=== PATIENT | male | born 1980 | race African-American/Black ===

== ENCOUNTER 2018-01-20 15:07 | Emergency (ER) | payer OTHER ==
[~2018-01-20] VITALS: Ht 177.8 cm; Wt 99.8 kg
[2018-01-20] MEDS ORDERED: NKM (15:20)
[2018-01-20] MEDS ORDERED: Tetanus/Diptheria/Pertussis Vaccine 0.5ml Syr IM ONE (15:30)
[2018-01-20] MEDS ORDERED: Tylenol #3 tab (300mg/30mg) ORAL ONE (15:30)
[2018-01-20] MEDS ORDERED: BACTRIM DS TAB1 EAC1 ORAL (15:36)
[2018-01-20] MEDS ORDERED: TYLENOL EXTRA500 MG ORAL (15:36)
[2018-01-20] MEDS ORDERED: HYDROCORTISONE30 G2 TP (15:36)
[2018-01-20] MEDS ORDERED: CEPHALEXIN500 MG ORAL (15:36)
--- NOTE | 2018-01-20 15:37 | Emergency Room Report ---
History of Present Illness General Chief Complaint: Skin Rash/Abscess Source: Patient Present Illness HPI 37-year-old male patient presents ER complaining of spider bite on the left leg. Reports was bitten 2 days ago. Reports has not treated wound at all or taken any medication for relief of symptoms. Reports that pain and swelling is increase in left lower leg since that time. Denies open wounds or draining. Denies bleeding. Denies fever, chest pain, shortness of breath, intractable vomiting. Denies radiation of pain up leg or down leg. Denies other acute symptoms. Reports able to ambulate without difficulty. Does not know tetanus vaccination status. Allergies: Coded Allergies: No Known Allergies (Unverified , 01/20/18) Patient History Past Medical History: see triage record Reviewed Nursing Documentation: PMH: Agreed; PSxH: Agreed Nursing Documentation-PMH Past Medical History: No Stated History Review of Systems All Other Systems: negative except mentioned in HPI Physical Exam Vital Signs Date Time Temp Pulse Resp B/P (MAP) Pulse Ox O2 Delivery O2 Flow Rate FiO2 01/20/18 15:17 98.5 90 16 111/66 95 Room Air 98.4 Sp02 EP Interpretation: reviewed, normal General Appearance: well appearing, no apparent distress, alert, GCS 15, non- toxic Head: normocephalic, atraumatic Eyes: bilateral eye normal inspection, bilateral eye PERRL ENT: hearing grossly normal, normal pharynx, no angioedema, normal voice, uvula midline, moist mucus membranes Neck: full range of motion Respiratory: lungs clear, normal breath sounds, no rhonchi, no respiratory distress, no accessory muscle use, no wheezing, speaking full sentences Cardiovascular #1: regular rate, rhythm, no edema Cardiovascular #2: 2+ dorsalis pedis (R), 2+ dorsalis pedis (L) Musculoskeletal: back normal, digits/nails normal, gait/station normal, normal range of motion, non-tender Neurologic: alert, oriented x3, responsive, motor strength/tone normal, sensory intact Psychiatric: mood/affect normal Skin: rash - erythema and edema noted on left anterior dixon, no central clearing, does not encompass the entire leg, no open wounds, no bleeding, no area of fluctuance or induration, no blisters or vesicles, no crepitus, no target shaped lesion Medical Decision Making PA Attestation Dr. Oconnor is my supervising Physician whom patient management has been discussed with. Diagnostic Impression: Primary Impression: Cellulitis ER Course Pt. presents to the ED c/o spider bite. Ddx considered but are not limited to atopic dermatitis, bug bite, urticaria, allergic reaction. Vital signs: are WNL, pt. is afebrile ER COURSE: Provided with pain medication. CURES report reviewed. Patient will be driven home by partner. Erythema and edema of left anterior leg consistent with cellulitis. No open wound or lesion. No bleeding or lesions. No bite cunha noted. No crepitus. No area of fluctuance or induration, low suspicion for abscess. Denies history of diabetes, no systemic symptoms, no fever or vomiting, does not require admission for IV antibiotics or labs at this time. Patient okay for outpatient treatment. Apply warm compresses keep area clean and dry. Return to ER for new or worsening of symptoms including but not limited to fever , chest pain, shortness of breath, intractable vomiting, red streaking, worsening of cellulitis symptoms. Take Benadryl for itching. Do not itch. Does not know tetanus vaccination status, provide with Tdap in ER. Apply small amount hydrocortisone cream to affected area, do not apply to face. DISCHARGE: -Rx given for Bactrim -Rx given for Keflex -Rx given for Tylenol -Rx given for hydrocortisone cream, apply small amount to affected area. -Patient instructed to apply warm compresses to affected area. At this time pt. is stable for d/c to home. Patient resting comfortably, in no acute distress, nontoxic appearing. Care plan and follow up instructions have been discussed with the patient prior to discharge. Patient provided with printed patient care instructions, and any necessary prescriptions. Patient instructed to follow-up with primary care provider in 3 - 5 days. Patient questions asked and answered. Patient reports understanding and agreement to treatment plan. ER precautions given. Patient instructed to return to ER immediately for any new or worsening of symptoms including but not limited to increasing SOB, persistent fever. - Please note that this Emergency Department Report was dictated using [employer] manager technology software, occasionally this can lead to erroneous entry secondary to interpretation by the dictation equipment. Last Vital Signs Date Time Temp Pulse Resp B/P (MAP) Pulse Ox O2 Delivery O2 Flow Rate FiO2 01/20/18 15:17 98.5 90 16 111/66 95 Room Air 98.4 Disposition: HOME, SELF-CARE Condition: Stable Scripts Hydrocortisone (Hydrocortisone Cream 2.5%) Y Cream.appl 1 APPLIC TP BID, #20 GM Prov: Joshua Hurd 01/20/18 Trimethoprim/Sulfamethoxazole 160/800* (BACTRIM DS TABLET*) 1 Each Tablet 1 TAB ORAL TWICE A DAY for 7 Days, #14 TAB Prov: Joshua Hurd 01/20/18 Acetaminophen* (TYLENOL EXTRA STRENGTH*) 500 Mg Tablet 500 MG ORAL Q8H PRN for Prn Headache/Temp > 101, #30 TAB 0 Refills Prov: Joshua Hurd 01/20/18 Cephalexin* (KEFLEX*) 500 Mg Capsule 500 MG ORAL EVERY 12 HOURS, #14 CAP 0 Refills Prov: Joshua Hurd 01/20/18 Patient Instructions: Cellulitis, [id number], Spider Bite, [id number] Additional Instructions: Followup with primary care provider in 2-3 days for wound check. Take Benadryl for itching symptoms. Do not itch. Apply warm compresses to affected area. Take medications as directed. Patient questions asked and answered. ER precautions given, patient instructed to return to ER immediately for any new or worsening of symptoms including but not limited to intractable vomiting, fever, chest pain, red streaking, worsening of erythema and edema. Joshua Hurd Jan 20, 2018 15:37
[2018-01-20 15:40] VITALS: BP 111/66
[2018-01-20 15:50] VITALS: BP 111/66
== END 2018-01-20 15:50 | disposition home or self-care (01) ==
LOC: EMR 15:40
DX: R21 Rash and other nonspecific skin eruption (principal); Z23 Encounter for immunization; L03.116 Cellulitis of left lower limb
CPT/HCPCS: 90471; 90715; 99284